=== PATIENT | male | born 1975 | race Asian ===

== ENCOUNTER 2017-09-21 20:08 | Observation (INO) | payer BC ==
[~2017-09-21 20:08] MED LIST: ATOR10TA15 PO; METF500T PO
[2017-09-21 21:00] VITALS: BP 138/74; PULSE 87; RESP 18; TEMP 98; O2SAT 98
[2017-09-21 21:06] VITALS: BP 133/90; PULSE 80; RESP 18; TEMP 98.4; O2SAT 98
[2017-09-21] MEDS ORDERED: ACETAMINOPHEN/HYDROcodone 325 MG/7.5 MG TAB PO PRN (22:00)
[2017-09-21] MEDS ORDERED: ACETAMINOPHEN 325 MG TAB PO PRN (22:00)
[2017-09-21 23:00] VITALS: PULSE 82
[2017-09-21 23:42] VITALS: BP 118/71; PULSE 79; RESP 18; TEMP 98; O2SAT 97
[2017-09-22 06:21] VITALS: BP 131/75; PULSE 71; RESP 18; TEMP 98.4; O2SAT 98
[2017-09-22 07:30] VITALS: PULSE 59
[2017-09-22] MEDS ORDERED: NITROGLYCERIN 0.4 MG SL 25 TABS/BTL SL PRN (07:30)
[2017-09-22] MEDS ORDERED: ONDANSETRON HCL 4 MG/2 ML VIAL IV PUSH PRN (07:30)
[2017-09-22] MEDS ORDERED: SODIUM CHLORIDE 0.9% FLUSH 10 ML FLUSH IV FLUSH PRN (07:30)
--- NOTE | 2017-09-22 08:48 | HHI.HP ---
HPI Primary Care Physician PCP in [place], [place] Chief Complaint Chest pain History of Present Illness 42-year-old male with type 2 diabetes, hyperlipidemia, and hypertension ( currently not prescribed antihypertensive medication) presents to emergency room for further evaluation of chest pain. Reporting 2 separate discomforts. Onset Sunday. Location left anterior chest. Characterized as a gradual squeeze. No radiation of pain. Duration waxes and wanes in intensity for 30 seconds. No associated symptoms of nausea, vomiting, dyspnea, or diaphoresis. Nonexertional. No known precipitating factors. Denies similar pain in the past. Yesterday's episodes became more intense and more frequent reporting approximately 10 episodes. Relieving factors morphine and aspirins given in the ER last evening. Also reports left shoulder and left upper arm discomfort, described as "shooting pain." Left arm discomfort does not occur same time as left anterior chest pain. Reporting pains always occur separately. No numbness , tingling, or weakness of arm, duration seconds. No recent or remote injury to spine or cervical areas. Endorses feeling "run down "Sunday afternoon. No recent illness, fever, or chills. Review of Systems General: Fatigue on Sunday and , since resolved. No weakness, fever, chills, recent illness, or change in appetite. HEENT: No WILLETT, no vision changes, no nasal congestion or drainage CV: As stated above. No current chest pain or pressure. RESP: No SOB, cough, wheeze, or history of asthma GI: No nausea, vomiting, or bowel changes. No melena or blood in the stool. : No dysuria, urgency, or history of kidney stones EXT: No lower leg edema, no paraesthesias MS: No discomfort, injury, trauma, or change in ROM NEURO: No difficulty with balance, LOC, motor/sensory deficits PSYCH: No anxiety, depression, or situational stress. SKIN: No rashes, no concerning lesions Past Family Social History Allergies: Coded Allergies: No Known Allergies (Unverified , 09/21/17) Past Medical History Type II diabetes, hyperlipidemia, hypertension (currently not on medication for bp) Past Surgical History None Reported Medications Reported Meds & Active Scripts Active Reported Metformin (Metformin HCl) 500 Mg Tab 500 Mg PO BIDPC Atorvastatin (Atorvastatin Calcium) 10 Mg Tab 10 Mg PO HS Active Ordered Medications Current Medications Medications (Trade) Dose Ordered Sig/Jessica Route Start Time Stop Time Status Last Admin (Glucophage) 500 mg BID PO 09/22/17 09:00 (Lipitor) 10 mg HS PO 09/22/17 21:00 (Tylenol) 650 mg Q8H PRN PO 09/21/17 22:00 ([place] 7.5-325 Mg) 1 tab Q6H PRN PO 09/21/17 22:00 (NS Flush) 2 ml UNSCH PRN IV FLUSH 09/22/17 07:30 (NS Flush) 2 ml BID IV FLUSH 09/22/17 09:00 09/22/17 08:45 (Zofran Inj) 4 mg Q6H PRN IV PUSH 09/22/17 07:30 (Nitrostat Sl) 0.4 mg Q5M PRN SL 09/22/17 07:30 (Aspirin) 325 mg DAILY PO 09/22/17 09:00 09/22/17 08:45 Family History Noncontributory for early onset cardiovascular disease. Father CABG 3 age 72. Social History Known type 2 diabetes, hyperlipidemia, and hypertension. Currently not on BP medications, reporting tried lisinopril, losartan, and amlodipine experiencing different types of reactions with each. Lifelong nonsmoker. Denies any alcohol or illegal drug use. . 2 children ages 9 and 15. 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 Past cardiac testing Exercise stress test for years ago unremarkable. Physical Exam Vital Signs Vital Signs Date Time Temp Pulse Resp B/P (MAP) Pulse Ox O2 Delivery O2 Flow Rate FiO2 09/22/17 06:21 98.4 71 18 131/75 (93) 98 09/21/17 23:42 98.0 79 18 118/71 (87) 97 09/21/17 23:00 82 09/21/17 21:06 98.4 80 18 133/90 (104) 98 Physical Exam GENERAL: Alert WN, WD, NAD, pleasant, male HEAD: NC, AT EYES: Sclera clear, conjunctiva without injection, pupils equal and round ENT: Mucous membranes pink and moist NECK: Supple, no masses, trachea midline CV: RRR, without murmur, rub, gallop, no JVD, S1-S2 no S3-S4. No carotid or femoral bruits. Nontender chest wall. RESP: Clear lungs throughout bilateral, no crackles, wheeze, rhonchi, symmetrical chest rise, nonlabored, able to speak in full sentences ABD: Soft, NT, ND, no masses, positive bowel tones EXT: Pulses +24, no dependent edema MS: Normal tone 4 extremities, nontender, no obvious deformities, full range of motion NEURO: motor strength 5/5, gait WNL PSYCH: A+O 3, pleasant affect, appropriate speech, mood, insight and judgment SKIN: Normal turgor, normal texture, no lesions, no rashes, brisk cap refill, even hair distribution Laboratory CBC completed [place] [facility]. WBC 12.0 otherwise unremarkable. CMP creatinine 1.40, glucose random 260, otherwise unremarkable Laboratory Tests Test 09/21/17 20:30 09/22/17 00:00 Troponin I LESS THAN 0.02 LESS THAN 0.02 Imaging Chest x-ray interpreted by radiologist as no acute disease Course EKG Normal sinus rhythm, normal axis, no ST or T-segment changes Caprini VTE Risk Assessment Caprini VTE Risk Assessment: No/Low Risk (score <= 1) Caprini Risk Assessment Model Point Value = 1 Point Value = 2 Point Value = 3 Point Value = 5 Age 41-60 Minor surgery BMI > 25 kg/m2 Swollen legs Varicose veins or History of unexplained or recurrent spontaneous Oral contraceptives or hormone replacement Sepsis (< 1 month) Serious lung disease, including pneumonia (< 1 month) Abnormal pulmonary function Acute myocardial infarction Congestive heart failure (< 1 month) History of inflammatory bowel disease Medical patient at bed rest Age 61-74 Arthroscopic surgery Major open surgery (> 45 min) Laparoscopic surgery (> 45 min) Malignancy Confined to bed (> 72 hours) Immobilizing plaster cast Central venous access Age >= 75 History of VTE Family history of VTE Factor V Leiden Prothrombin [id number] Lupus anticoagulant Anticardiolipin antibodies Elevated serum homocysteine Heparin-induced thrombocytopenia Other congenital or acquired thrombophilia Stroke (< 1 month) Elective arthroplasty Hip, pelvis, or leg fracture Acute spinal cord injury (< 1 month) Prophylaxis Regimen Total Risk Factor Score Risk Level Prophylaxis Regimen 0-1 Low Early ambulation 2 Moderate Order ONE of the following: *Sequential Compression Device (SCD) *Heparin 5000 units SQ BID 3-4 Higher Order ONE of the following medications: *Heparin 5000 units SQ TID *Enoxaparin/Lovenox 40 mg SQ daily (WT < 150 kg, CrCl > 30 mL/min) *Enoxaparin/Lovenox 30 mg SQ daily (WT < 150 kg, CrCl > 10-29 mL/min) *Enoxaparin/Lovenox 30 mg SQ BID (WT < 150 kg, CrCl > 30 mL/min) AND/OR *Sequential Compression Device (SCD) 5 or more Highest Order ONE of the following medications: *Heparin 5000 units SQ TID (Preferred with Epidurals) *Enoxaparin/Lovenox 40 mg SQ daily (WT < 150 kg, CrCl > 30 mL/min) *Enoxaparin/Lovenox 30 mg SQ daily (WT < 150 kg, CrCl > 10-29 mL/min) *Enoxaparin/Lovenox 30 mg SQ BID (WT < 150 kg, CrCl > 30 mL/min) AND *Sequential Compression Device (SCD) Assessment and Plan Assessment and Plan #1 Atypical chest pain-admitted chest pain center. Ruled out with 3 sets of EKGs, cardiac enzymes, and monitored overnight. Seen and evaluated with Dr. Roger Donahue. Proceeded with exercise stress test, no signs of ST changes to suggest ischemia. Discharge later this afternoon. Instructed him and notify PCP of his visit to the ER. Reassurance provided. #2 Type 2 diabetes-continue metformin, keep scheduled PCP appointment in 2 weeks , discussed importance of tight blood glucose control, encouraged increasing daily activity, and decreasing his sugar and flour intake. #3 Hyperlipidemia-continue atorvastatin #4 Hypertension-continue to monitor, discussed importance of tight blood pressure control, benefits of JOSE RAFAEL inhibitors which are renal protective with his diagnosis of diabetes. Discussed possibility of adding beta annmarie, encouraged and discussed this with his PCP as he and his primary doctor had been working closely to determine a antihypertensive medication he tolerates. Low sodium diet discussed. #5 Mild renal insufficiency-notified of creatine level, follow-up with PCP, discussed mild renal insufficiency could be due to mildly elevated blood pressure and/or diabetes. Dorothea Rivera Sep 22, 2017 08:48
[2017-09-22] MEDS ORDERED: metFORMIN HCL 500 MG TAB PO SCH (09:00)
[2017-09-22] MEDS ORDERED: SODIUM CHLORIDE 0.9% FLUSH 10 ML FLUSH IV FLUSH SCH (09:00)
[2017-09-22] MEDS ORDERED: ASPIRIN 325 MG TAB PO SCH (09:00)
[2017-09-22 09:06] VITALS: BP 133/93; PULSE 68; RESP 21; TEMP 96.4; O2SAT 97
[2017-09-22 11:13] VITALS: PULSE 66
--- NOTE | 2017-09-22 11:57 | HHI.DCPOC ---
Discharge Care Plan Diagnosis: (1) Atypical chest pain (2) Hypertension (3) Type 2 diabetes mellitus (4) Hyperlipemia Goals to Promote Your Health * To prevent worsening of your condition and complications * To maintain your health at the optimal level Directions to Meet Your Goals Take your medications as prescribed Follow your dietary instruction Follow activity as directed Keep your appointments as scheduled Take your immunizations and boosters as scheduled If your symptoms worsen call your PCP, if no PCP go to Urgent Care Center or Emergency Room Smoking is Dangerous to Your Health. Avoid second hand smoke Call the 24-hour hour crisis hotline for domestic abuse at Dorothea Rivera Sep 22, 2017 11:57
--- NOTE | 2017-09-22 12:03 | EKG ---
Date Performed: 09/21/2017 Time Performed: 23:47:50 PTAGE: 42 years EKG: Sinus rhythm Normal ECG PREVIOUS TRACING : 09/21/2017 21.24 Since previous tracing, no significant change noted DOCTOR: Roger Donahue Interpretating Date/Time 09/22/2017 12:01:08
--- NOTE | 2017-09-22 12:03 | EKG ---
Date Performed: 09/21/2017 Time Performed: 21:24:10 PTAGE: 42 years EKG: Sinus rhythm MODERATE INTRAVENTRICULAR CONDUCTION DELAY NONSPECIFIC T-WAVE ABNORMALITY BORDERLINE ECG NO PREVIOUS TRACING DOCTOR: Roger Donahue Interpretating Date/Time 09/22/2017 12:03:02
--- NOTE | 2017-09-22 12:13 | TR ---
Date Performed: 09/22/2017 Time Performed: 11:30:28 DOCTOR: Roger Donahue DRUG LIST: CLINICAL HISTORY: CHEST PAIN REASON FOR TEST: Chest pain REASON FOR ENDING: OBSERVATION: CONCLUSION: Hemant protocol completed. Stopped sec to reaching target heart rate and leg fatigue. Maximum SX=211 Target HR Achieved=85.0% Resting VQ=833/90 Total Exercise Time=9:01. No reprod chest pain. No ectopy. No st t segment changes to sugg ischemia. Good exercise tolerance. Normal bp respons e. Recovery quick and unremarkable. COMMENTS: Conclusion: Normal treadmill exercise. No evidence of ischemia.
[2017-09-22] MEDS ORDERED: ATORVASTATIN 10 MG TAB PO SCH (21:00)
== END 2017-09-22 13:39 | disposition home or self-care (01) ==
LOC: NEDDLT 20:08 → NEPFCDU 20:10
DX: R07.89 Other chest pain (principal); I10 Essential (primary) hypertension; R94.31 Abnormal electrocardiogram [ECG] [EKG]; E78.5 Hyperlipidemia, unspecified; E11.9 Type 2 diabetes mellitus without complications; Z79.84 Long term (current) use of oral hypoglycemic drugs
CPT/HCPCS: 71010; 80053; 82550; 82948; 84484; 85025; 85610; 85730; 93005; 93017; 96374; 96375; 99285; G0378; J2270; J2405